=== PATIENT | female | born 2000 | race American Indian/Alaskan Native ===

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

== ENCOUNTER 2021-05-05 10:00 | Emergency (ER) | payer OTHER ==
[2021-05-05 10:42] VITALS: BP 117/67; PULSE 62
--- NOTE | 2021-05-05 11:00 | EDM.PDOC ---
Scribed by Donita Mahmood 05/05/21 1100 for Warren Samuels MD ED HPI GENERAL MEDICAL PROBLEM - General Chief Complaint: Abdominal Pain Stated Complaint: [id number] CHEST PAIN Time Seen by Provider: 05/05/21 10:39 Source of Information: Reports: Patient, RN, RN Notes Reviewed History Limitations: Reports: No Limitations - History of Present Illness INITIAL COMMENTS - FREE TEXT/NARRATIVE: Patient presents to ER by POV for evaluation of intermittent abdominal pain. Patient reports she woke up with 10/10 RUQ abdominal pain. Patient reports pain started radiating into her chest. Therefore she and her family member decided to come to the ER. Patient reports pain dissipated en route and now denies having pain. Patient reports last bowel movement was yesterday and was "normal". Patient denies any fevers, chills, vomiting, SOB, sore throat, or cough. Onset: Today Duration: Resolved Prior to Arrival Location: Reports: Chest, Abdomen Quality: Reports: Ache Severity: Moderate Improves with: Reports: None Worsens with: Reports: None Associated Symptoms: Reports: No Other Symptoms Abdomen Pain Score (Numeric/FACES): 0 - Related Data Allergies Allergy/AdvReac Type Severity Reaction Status Date / Time No Known Allergies Allergy Verified 05/05/21 10:32 Home Meds: Home Meds . 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 Musculoskeletal History: Reports: None Neurological History: Reports: None Psychiatric History: Reports: None Endocrine/Metabolic History: Reports: None Hematologic History: Reports: None Immunologic History: Reports: None Oncologic (Cancer) History: Reports: None Dermatologic History: Reports: None - Infectious Disease History Infectious Disease History: Reports: None - Past Surgical History Head Surgeries/Procedures: Reports: None Social & Family History - Family History Family Medical History: No Pertinent Family History - Caffeine Use Caffeine Use: Reports: Coffee, Soda - Sexual History Sexual History: Reports: Sexually Active - Living Situation & Occupation Living situation: Reports: with Family Occupation: Student ED ROS GENERAL - Review of Systems Review Of Systems: Comprehensive ROS is negative, except as noted in HPI. ED EXAM, GI/ABD - Physical Exam Exam: See Below Exam Limited By: No Limitations General Appearance: Alert, WD/WN, No Apparent Distress Eyes: Bilateral: Normal Appearance Ears: Normal External Exam, Normal Canal, Hearing Grossly Normal, Normal TMs Nose: Normal Inspection, Normal Mucosa, No Blood Throat/Mouth: Normal Inspection, Normal Lips, Normal Teeth, Normal Gums, Normal Oropharynx, Normal Voice, No Airway Compromise Head: Atraumatic, Normocephalic Neck: Normal Inspection, Supple, Non-Tender, Full Range of Motion Respiratory/Chest: No Respiratory Distress, Lungs Clear, Normal Breath Sounds, No Accessory Muscle Use, Chest Non-Tender Cardiovascular: Normal Peripheral Pulses, Regular Rate, Rhythm, No Edema, No Gallop, No JVD, No Murmur, No Rub GI/Abdominal Exam: Normal Bowel Sounds, Soft, Non-Tender, No Organomegaly, No Distention, No Abnormal Bruit, No Mass. No: Guarding, Rigid, Rebound (Female) Exam: Deferred Rectal (Female) Exam: Deferred Back Exam: Normal Inspection, Full Range of Motion, NT Extremities: Normal Inspection, Normal Range of Motion, Non-Tender, Normal Capillary Refill, No Pedal Edema Neurological: Alert, Oriented, Normal Cognition, Normal Gait, No Motor/Sensory Deficits Psychiatric: Normal Affect, Normal Mood Skin Exam: Warm Course - Vital Signs Last Recorded V/S: Last Vital Signs Temp 97.7 F 05/05/21 10:32 Pulse 62 05/05/21 10:32 Resp 20 05/05/21 10:32 BP 117/67 05/05/21 10:32 Pulse Ox 98 05/05/21 10:32 Departure - Departure Time of Disposition: 10:57 Disposition: Home, Self-Care 01 Condition: Good Clinical Impression: Biliary colic - Discharge Information *PRESCRIPTION DRUG MONITORING PROGRAM REVIEWED*: Not Applicable *COPY OF PRESCRIPTION DRUG MONITORING REPORT IN PATIENT NANCY: Not Applicable Instructions: Biliary Colic, Adult, Abdominal Pain, Adult, [id number] Forms: ED Department Discharge Additional Instructions: Low fat diet. Avoid greasy, fried, and high fat foods. Follow up at [facility] this week for gallbladder evaluation and outpatient gallbladder ultrasound. Return to ER if pain returns, or if any new symptoms develop. Sepsis Event Note (ED) - Focused Exam Vital Signs: Vital Signs Temp Pulse Resp BP Pulse Ox 05/05/21 10:32 97.7 F 62 20 117/67 98 I have read and agree with the documentation that has been completed regarding this visit. By signing this record, I attest that the documentation was completed in my physical presence and is an accurate record of the encounter.
== END 2021-05-05 11:30 | disposition home or self-care (01) ==
LOC: DL.ED 10:00
DX: K80.50 Calculus of bile duct without cholangitis or cholecystitis without obstruction (principal)
CPT/HCPCS: 99283

== ENCOUNTER 2021-10-10 14:21 | Emergency (ER) | payer BC, OTHER ==
[2021-10-10] MEDS ORDERED: Sodium Chloride 0.9% 10 ML Syringe FLUSH PRN (14:39)
[2021-10-10 14:46] VITALS: BP 112/71; PULSE 80
[2021-10-10 15:31] LABS: ANION GAP 14.6 mEq/L (7-13); CHLORIDE,CL 103 mmol/L (98-107); SODIUM,NA 139 mmol/L (136-145)
== END 2021-10-10 17:22 | disposition home or self-care (01) ==
LOC: DL.ED 14:21
DX: O99.612 Diseases of the digestive system complicating pregnancy, second trimester (principal); K80.70 Calculus of gallbladder and bile duct without cholecystitis without obstruction; Z3A.23 23 weeks gestation of pregnancy; Z72.0 Tobacco use
CPT/HCPCS: 36415; 76705; 76815; 76999; 80053; 81003; 82150; 83605; 83690; 83735; 84443; 85025; 86140; 99284-25

== ENCOUNTER 2021-10-29 00:29 | Emergency (ER) | payer BC, OTHER ==
[2021-10-29] MEDS ORDERED: Sodium Chloride 0.9% 10 ML Syringe FLUSH PRN (00:38)
[2021-10-29] MEDS ORDERED: HYDROmorphone 1 MG/ML Syringe ONE (00:46)
[2021-10-29] MEDS ORDERED: HYDROmorphone 0.5 MG/0.5 ML Syringe IVPUSH ONE (00:50)
[2021-10-29] MEDS ORDERED: Metoclopramide 10 MG/2 ML SDV IVPUSH ONE (00:51)
[2021-10-29 01:13] LABS: CHLORIDE,CL 103 mmol/L (98-107); SODIUM,NA 137 mmol/L (136-145)
[2021-10-29] MEDS ORDERED: Cephalexin 500 MG Cap PO ONE (02:00)
[2021-10-29 02:09] VITALS: BP 108/61; PULSE 74
[2021-10-29] MEDS ORDERED: hydrOXYzine HCl 25 MG Tab PO ONE (02:36)
== END 2021-10-29 02:55 | disposition home or self-care (01) ==
LOC: DL.ED 00:29
DX: O23.12 Infections of bladder in pregnancy, second trimester (principal); O26.612 Liver and biliary tract disorders in pregnancy, second trimester; K83.1 Obstruction of bile duct; Z72.0 Tobacco use; Z3A.25 25 weeks gestation of pregnancy
CPT/HCPCS: 36415; 76705; 80053; 81001; 82150; 83605; 83690; 85025; 86140; 87086; 96374; 96375; 99284-25; 99285; A9270-GY; J1170; J2765

== ENCOUNTER 2021-12-26 19:08 | Observation (INO) | payer BC, MEDICAID ==
[2021-12-26] MEDS ORDERED: Sodium Chloride 0.9% 10 ML Syringe FLUSH PRN (20:14)
[2021-12-26] MEDS ORDERED: Lactated Ringers 1,000 ML IV ONE ×2 (20:14→20:51)
[2021-12-26] MEDS ORDERED: Betamethasone Acetate/Betamethasone Sod Phosphate 30 MG/5 ML MDV IM ONE (20:49)
[2021-12-26] MEDS ORDERED: Acetaminophen 500 MG Tab PO ONE (20:52)
[2021-12-26] MEDS: Sodium Chloride 0.9% 10 ML Syringe FLUSH SCH (22:07)
[2021-12-26] MEDS ORDERED: Acetaminophen 325 MG Tab PO PRN (22:32)
[2021-12-26] MEDS: Acyclovir 200 MG Cap PO SCH (23:44)
[2021-12-27] MEDS ORDERED: hydrOXYzine HCl 25 MG Tab PO ONE (00:08)
[2021-12-27] MEDS: Sodium Chloride 0.9% 10 ML Syringe FLUSH SCH (10:18)
[2021-12-27] MEDS: Acyclovir 200 MG Cap PO SCH (10:18)
[2021-12-27 11:48] VITALS: BP 118/66; PULSE 100
[2021-12-27] MEDS ORDERED: Acyclovir 200 MG Cap PO SCH (22:39)
== END 2021-12-27 12:05 | disposition home or self-care (01) ==
LOC: DL.OBCHECK 19:08 → DL.OB 22:32
PROVIDERS: ADMIT Family Medicine; ATTEND Family Medicine
DX: O47.03 False labor before 37 completed weeks of gestation, third trimester (principal); O98.313 Other infections with a predominantly sexual mode of transmission complicating pregnancy, third trimester; Z3A.34 34 weeks gestation of pregnancy; Z79.899 Other long term (current) drug therapy
CPT/HCPCS: 76817; 81001; 82731; 87210; A9270-GY; G0378; J0702; J7120

== ENCOUNTER 2022-02-01 20:35 | Emergency (ER) | payer BC, MEDICAID ==
[2022-02-01 20:25] VITALS: BP 110/78; PULSE 74
[2022-02-01] MEDS ORDERED: Cephalexin 500 MG Cap PO ONE (20:36)
[2022-02-01 21:37] LABS: ANION GAP 14.6 mEq/L (7-13); CHLORIDE,CL 107 mmol/L (98-107); SODIUM,NA 145 mmol/L (136-145)
[2022-02-01] MEDS ORDERED: Cephalexin 500 MG Cap ONE (22:05)
== END 2022-02-01 22:09 | disposition home or self-care (01) ==
LOC: DL.ED 20:35
DX: R10.13 Epigastric pain (principal); N30.01 Acute cystitis with hematuria; F17.210 Nicotine dependence, cigarettes, uncomplicated; Z79.899 Other long term (current) drug therapy
CPT/HCPCS: 36415; 80053; 81001; 82150; 83605; 85025; 87040; 87086; 87088; 87186; 99284; A9270; 87077; 99283

== ENCOUNTER 2022-05-12 13:12 | Emergency (ER) | payer BC, MEDICAID ==
[2022-05-12] MEDS ORDERED: Sodium Chloride 0.9% 10 ML Syringe FLUSH PRN (13:20)
[2022-05-12] MEDS ORDERED: HYDROmorphone 1 MG/ML Syringe IVPUSH ONE (13:26)
[2022-05-12] MEDS ORDERED: Sodium Chloride 0.9% 1,000 ML IV ONE (13:27)
[2022-05-12] MEDS ORDERED: Ondansetron 4 MG/2 ML SDV IV ONE (13:27)
[2022-05-12 13:39] VITALS: BP 139/127; PULSE 92
[2022-05-12 13:51] LABS: ANION GAP 10.9 mEq/L (7-13); CHLORIDE,CL 103 mmol/L (98-107); SODIUM,NA 140 mmol/L (136-145)
[2022-05-12 13:56] LABS: ESTIMATED GFR 125 mL/min (>=60)
[2022-05-12 14:29] LABS: MDMA (ECSTASY), URINE NEGATIVE (NEGATIVE); METHADONE,URINE NEGATIVE (NEGATIVE); METHAMPHETAMINES,URINE NEGATIVE (NEGATIVE)
[2022-05-12 14:30] LABS: AMPHETAMINES,URINE NEGATIVE (NEGATIVE); BARBITURATES,URINE NEGATIVE (NEGATIVE); BENZODIAZEPINE,URINE NEGATIVE (NEGATIVE); OPIATES,URINE POSITIVE (NEGATIVE); OXYCODONE,URINE NEGATIVE (NEGATIVE); PHENCYCLIDINE,URINE NEGATIVE (NEGATIVE); TCA,URINE NEGATIVE (NEGATIVE)
== END 2022-05-12 15:27 | disposition home or self-care (01) ==
LOC: DL.ED 13:12
DX: K80.70 Calculus of gallbladder and bile duct without cholecystitis without obstruction (principal); Z79.899 Other long term (current) drug therapy
CPT/HCPCS: 36415; 76705; 80053; 80305-QW; 81001; 82150; 83605; 83690; 84703; 85025; 86140; 96361; 96374; 96375; 99284; 99284-25; J1170; J2405; J3490; J7030

== ENCOUNTER 2022-05-13 01:25 | Emergency (ER) | payer BC, MEDICAID ==
[2022-05-13] MEDS ORDERED: Ondansetron 4 MG/2 ML SDV IVPUSH ONE (02:27)
[2022-05-13] MEDS ORDERED: fentaNYL 100 MCG/2 ML SDV IVPUSH ONE (02:30)
[2022-05-13 03:07] LABS: ANION GAP 11.8 mEq/L (7-13); CHLORIDE,CL 105 mmol/L (98-107); SODIUM,NA 142 mmol/L (136-145)
[2022-05-13 03:08] LABS: ESTIMATED GFR 119 mL/min (>=60)
[2022-05-13] MEDS ORDERED: Sodium Chloride 0.9% 1,000 ML IV ONE (03:22)
[2022-05-13] MEDS ORDERED: Iopamidol 612 MG/ML 100 ML Bottle IVPUSH ONE (03:22)
[2022-05-13] MEDS ORDERED: Metoclopramide 10 MG/2 ML SDV IVPUSH ONE (04:34)
[2022-05-13 05:34] LABS: AMPHETAMINES,URINE NEGATIVE (NEGATIVE); BARBITURATES,URINE NEGATIVE (NEGATIVE); BENZODIAZEPINE,URINE NEGATIVE (NEGATIVE); MDMA (ECSTASY), URINE NEGATIVE (NEGATIVE); METHADONE,URINE NEGATIVE (NEGATIVE); METHAMPHETAMINES,URINE NEGATIVE (NEGATIVE); OPIATES,URINE POSITIVE (NEGATIVE); OXYCODONE,URINE NEGATIVE (NEGATIVE); PHENCYCLIDINE,URINE NEGATIVE (NEGATIVE); TCA,URINE NEGATIVE (NEGATIVE)
[2022-05-13 11:41] VITALS: BP 109/62; PULSE 50
[2022-05-13] MEDS ORDERED: Ibuprofen 400 MG Tab PO ONE (14:02)
[2022-05-13 14:22] LABS: ANION GAP 10.7 mEq/L (7-13); CHLORIDE,CL 106 mmol/L (98-107); SODIUM,NA 141 mmol/L (136-145)
[2022-05-13 14:23] LABS: ESTIMATED GFR 123 mL/min (>=60)
== END 2022-05-13 15:19 ==
LOC: DL.ED 01:25
DX: K80.70 Calculus of gallbladder and bile duct without cholecystitis without obstruction (principal); K72.00 Acute and subacute hepatic failure without coma; E80.7 Disorder of bilirubin metabolism, unspecified; R74.01 Elevation of levels of liver transaminase levels; R74.8 Abnormal levels of other serum enzymes; F17.210 Nicotine dependence, cigarettes, uncomplicated; Z20.822 Contact with and (suspected) exposure to COVID-19
CPT/HCPCS: 36415; 74177; 76705; 80053; 80074; 80305-QW; 81001; 82150; 83605; 83690; 84703; 85025; 85610; 96361; 96374; 96375; 99284; 99284-25; A9270-GY; J2405; J2765; J3010; J7030; Q9967; U0002

== ENCOUNTER 2022-12-09 04:20 | Emergency (ER) | payer BC, MEDICAID ==
[2022-12-09 04:46] VITALS: BP 120/89; PULSE 79
[2022-12-09] MEDS ORDERED: HYDROmorphone 0.5 MG/0.5 ML Syringe IVPUSH ONE (05:22)
[2022-12-09] MEDS ORDERED: Sodium Chloride 0.9% 1,000 ML IV ONE (05:22)
[2022-12-09 05:47] LABS: ANION GAP 11.5 mEq/L (7-13)
[2022-12-09 05:52] LABS: AMPHETAMINES,URINE NEGATIVE (NEGATIVE); BARBITURATES,URINE NEGATIVE (NEGATIVE); BENZODIAZEPINE,URINE NEGATIVE (NEGATIVE); MDMA (ECSTASY), URINE NEGATIVE (NEGATIVE); METHADONE,URINE NEGATIVE (NEGATIVE); METHAMPHETAMINES,URINE NEGATIVE (NEGATIVE); OPIATES,URINE NEGATIVE (NEGATIVE); OXYCODONE,URINE NEGATIVE (NEGATIVE); PHENCYCLIDINE,URINE NEGATIVE (NEGATIVE); TCA,URINE NEGATIVE (NEGATIVE)
[2022-12-09] MEDS ORDERED: Ondansetron 4 MG/2 ML SDV IVPUSH ONE (05:53)
[2022-12-09] MEDS ORDERED: Nitrofurantoin Monohydrate/Macrocrystalline 100 MG Cap PO ONE (06:10)
[2022-12-10 13:27] LABS: C.TRACHOMATIS BY TMA Negative (Negative); N.GONORRHOEAE BY TMA Negative (Negative)
== END 2022-12-09 06:23 | disposition home or self-care (01) ==
LOC: DL.ED 04:20
DX: N30.00 Acute cystitis without hematuria (principal); R11.0 Nausea; Z72.0 Tobacco use
CPT/HCPCS: 36415; 80053; 80305; 81001; 81025; 85025; 87491; 87563; 87591; 96361; 96374; 99284; A9270; J1170; J2405; J7030; 99282

== ENCOUNTER 2024-04-14 09:54 | Inpatient (IN) | payer OTHER ==
[2024-04-14] MEDS: Lactated Ringers 1,000 ML IV ONE (11:05)
[2024-04-14 12:43] LABS: HEMATOCRIT 33.2 % (37.0-47.0); HEMOGLOBIN 10.7 g/dL (12.0-16.0); MEAN CORPUSCULAR HEMOGLOBIN 29.7 pg (27.0-34.0); MEAN CORPUSCULAR HGB CONC 32.2 g/dL (33.0-35.0); MEAN CORPUSCULAR VOLUME 92.2 fL (80-100); RED BLOOD CELL COUNT 3.6 10^6/uL (4.2-5.4); WHITE BLOOD CELL COUNT,WBC 6.6 10^3/uL (5.0-10.0)
[2024-04-14] MEDS ORDERED: ceFAZolin 2 GM Vial IVPUSH ONE (12:58)
[2024-04-14] MEDS ORDERED: Tranexamic Acid 1,000 MG in Sodium Chloride 0.9% 100 ML IV PRN (12:59)
[2024-04-14] MEDS ORDERED: Ibuprofen 800 MG Tab PO PRN (12:59)
[2024-04-14] MEDS ORDERED: Methylergonovine 0.2 MG/1 ML Amp IM PRN (12:59)
[2024-04-14] MEDS ORDERED: Naloxone 2 MG/2 ML Syringe IVPUSH PRN (12:59)
[2024-04-14] MEDS ORDERED: Carboprost Tromethamine 250 MCG/1 ML Amp IM PRN (12:59)
[2024-04-14] MEDS ORDERED: Acetaminophen 325 MG Tab PO PRN (12:59)
[2024-04-14] MEDS ORDERED: Misoprostol 400 MCG (4 X 100 MCG TAB) RECTAL PRN (12:59)
[2024-04-14] MEDS ORDERED: ePHEDrine 50 MG/ML SDV IVPUSH PRN (12:59)
[2024-04-14] MEDS ORDERED: Oxytocin 10 Units/1 ML SDV ONE (13:09)
[2024-04-14] MEDS ORDERED: Dexamethasone 4 MG/ML SDV ONE (13:09)
[2024-04-14] MEDS: Oxytocin/Normal Saline 30 UNIT/500 ML BAG IV SCH (14:22)
[2024-04-14] MEDS: Lactated Ringers 1,000 ML IV SCH (14:22)
[2024-04-14] MEDS: diphenhydrAMINE 50 MG/ML SDV IVPUSH PRN (16:30)
[2024-04-14] MEDS: Ondansetron 4 MG/2 ML SDV IVPUSH PRN (16:31)
[2024-04-14] MEDS: Metoclopramide 10 MG/2 ML SDV IM ONE (17:49)
[2024-04-14] MEDS: Ketorolac 30 MG/ML SDV IVPUSH SCH (20:06)
[2024-04-14] MEDS: Promethazine 25 MG/ML SDV IM ONE (20:09)
[2024-04-14] MEDS: Simethicone 80 MG Tab.Chew PO SCH (21:25)
[2024-04-15 06:36] LABS: HEMATOCRIT 28.5 % (37.0-47.0); MEAN CORPUSCULAR HEMOGLOBIN 29.4 pg (27.0-34.0); MEAN CORPUSCULAR HGB CONC 31.6 g/dL (33.0-35.0); MEAN CORPUSCULAR VOLUME 93.1 fL (80-100); RED BLOOD CELL COUNT 3.06 10^6/uL (4.2-5.4); WHITE BLOOD CELL COUNT,WBC 9.9 10^3/uL (5.0-10.0)
[2024-04-15] MEDS: Prenatal Multivitamin with Calcium/Folic Acid/Iron Tab PO SCH (10:44)
[2024-04-15] MEDS: Docusate Sodium 100 MG Cap PO PRN (10:44)
[2024-04-15] MEDS: Ferrous Sulfate 325 MG Tab PO SCH (10:44)
[2024-04-15] MEDS: Acetaminophen/oxyCODONE 325-5 MG Tab PO PRN ×2 (14:15→20:50)
[2024-04-15] MEDS: Ibuprofen 800 MG Tab PO SCH (16:00)
[2024-04-16] MEDS: Ondansetron 4 MG Tab.DIS PO PRN (22:45)
[2024-04-17] MEDS: Bisacodyl 10 MG Supp RECTAL ONE (00:36)
[2024-04-17 00:43] LABS: BASOPHILS PERCENT AUTO 0.1 % (0.0-1.0); EOSINOPHILS PERCENT AUTO 1.7 % (1.0-3.0); HEMATOCRIT 30.9 % (37.0-47.0); HEMOGLOBIN 9.8 g/dL (12.0-16.0); LYMPHOCYTES PERCENT AUTO 16.2 % (20.5-50.1); MEAN CORPUSCULAR HEMOGLOBIN 29.7 pg (27.0-34.0); MEAN CORPUSCULAR HGB CONC 31.7 g/dL (33.0-35.0); MEAN CORPUSCULAR VOLUME 93.6 fL (80-100); MONOCYTES PERCENT AUTO 9.5 % (2-8); NEUTROPHILS PERCENT AUTO 72.5 % (42.2-75.2); PLATELET COUNT,PLT 224 10^3/uL (150-450); WHITE BLOOD CELL COUNT,WBC 8.8 10^3/uL (5.0-10.0)
[2024-04-17 01:06] LABS: ALBUMIN 2.2 g/dL (3.4-5.0); BILIRUBIN TOTAL 0.2 mg/dL (0.2-1.0); BUN/CREATININE RATIO 7.6 (No establ ref range); CALCIUM 8.6 mg/dL (8.5-10.1); CREATININE 0.92 mg/dL (0.55-1.02); EST CRCL DRUG DOSING (CG) 86.31 mL/min; PROTEIN TOTAL,TP 5.6 g/dL (6.4-8.2)
[2024-04-17 01:09] LABS: TSH ULTRASENSITIVE 2.3 uIU/mL (0.36-3.74)
[2024-04-17 01:12] LABS: A/G RATIO 0.65
[2024-04-17] MEDS: hydrOXYzine HCl 25 MG Tab PO ONE (01:39)
[2024-04-17 19:35] VITALS: BP 132/80; PULSE 65
[2024-04-17] MEDS ORDERED: Ketorolac 30 MG/ML SDV IVPUSH ONE (23:29)
[2024-04-17] MEDS ORDERED: Oxytocin/Normal Saline 30 UNIT/500 ML BAG IV ONE (23:29)
[2024-04-17] MEDS ORDERED: Ondansetron 4 MG/2 ML SDV IV ONE (23:29)
[2024-04-17] MEDS ORDERED: Dexamethasone 4 MG/ML SDV IV ONE (23:29)
[2024-04-17] MEDS ORDERED: Morphine PF 10 MG/10 ML SDV EPIDUR ONE (23:29)
[2024-04-17] MEDS ORDERED: Ropivacaine 100 ML EPIDUR ONE (23:29)
== END 2024-04-17 23:30 | disposition home or self-care (01) | DRG 787 ==
LOC: DL.OBCHECK 09:54 → DL.MS 12:09 → OBSVTOIN 13:48
PROVIDERS: ADMIT Family Medicine; ATTEND Family Medicine
PROC: 10D00Z1 Extraction of Products of Conception, Low, Open Approach (ICD-10-PCS; principal; 2024-04-14 13:25)
DX: O34.211 Maternal care for low transverse scar from previous cesarean delivery (principal); O98.52 Other viral diseases complicating childbirth; O99.824 Streptococcus B carrier state complicating childbirth; B00.9 Herpesviral infection, unspecified; Z3A.37 37 weeks gestation of pregnancy; Z37.0 Single live birth; Z98.890 Other specified postprocedural states; Z90.49 Acquired absence of other specified parts of digestive tract
CPT/HCPCS: 01961; 36415; 51702; 80053; 84443; 84484; 85025; 85027; 86850; 86900; 86901; 93005; 94010; A9270-GY; J1100; J1200; J1885; J2270; J2405; J2550; J2590; J2765; J2795; J7120

== ENCOUNTER 2024-05-31 13:45 | Emergency (ER) | payer BC, OTHER ==
[2024-05-31] MEDS ORDERED: Midazolam 1 MG/ML 2 ML SDV IVPUSH ONE (13:49)
[2024-05-31] MEDS: Acetaminophen 500 MG Tab PO ONE (14:35)
[2024-05-31 15:16] VITALS: BP 136/79; PULSE 97
== END 2024-05-31 14:48 | disposition home or self-care (01) ==
LOC: DL.ED 13:45
DX: R51.9 Headache, unspecified (principal); T50.905A Adverse effect of unspecified drugs, medicaments and biological substances, initial encounter; Z90.49 Acquired absence of other specified parts of digestive tract; Z79.899 Other long term (current) drug therapy
CPT/HCPCS: 70450; 99284; A9270-GY